=== PATIENT | female | born 1955 | race Two or more races ===

== ENCOUNTER 2017-08-08 08:49 | Inpatient (IN) | payer MEDICARE, OTHER ==
[~2017-08-08] VITALS: Ht 152.4 cm; Wt 94.8 kg
[2017-08-08 08:50] VITALS: BP 137/59
[2017-08-08] MEDS ORDERED: Sodium Chloride 500ML 500 ML IV ONE (08:56)
--- NOTE | 2017-08-08 09:17 | Emergency Room Report ---
History of Present Illness General Chief Complaint: Syncope Source: Patient Present Illness HPI Patient had a kidney transplant left lower abdomen told years ago She has been doing well with the transplant since then This morning the patient had gone to the restroom The next thing she recalls is being on the floor having difficulty standing up feeling weak Patient called the neighbors who contacted paramedics Upon arrival the patient is awake and alert complains of left hip pain Does not recall any symptoms prior to the syncopal episode At this time denies any head pain or neck pain denies any chest pain or short of breath Denies any recent fevers Allergies: Coded Allergies: No Known Allergies (Unverified , 08/08/17) Patient History Past Medical History: see triage record Pertinent Family History: none Now: No Reviewed Nursing Documentation: PMH: Agreed, PSxH: Agreed Nursing Documentation-PMH Hx Hypertension: Yes Review of Systems All Other Systems: negative except mentioned in HPI Physical Exam Vital Signs Date Time Temp Pulse Resp B/P (MAP) Pulse Ox O2 Delivery O2 Flow Rate FiO2 08/08/17 08:40 99.0 77 14 193/92 97 Room Air Sp02 EP Interpretation: reviewed, normal General Appearance: well appearing, no apparent distress Head: normocephalic, atraumatic Eyes: bilateral eye PERRL, bilateral eye EOMI ENT: hearing grossly normal, normal pharynx, TMs + canals normal, uvula midline Neck: full range of motion, supple, no meningismus, no bony tend Respiratory: lungs clear, normal breath sounds, no rhonchi, no respiratory distress, no retraction, no accessory muscle use Cardiovascular #1: normal peripheral pulses, regular rate, rhythm, no edema, no gallop, no JVD, no murmur Gastrointestinal: normal bowel sounds, non tender, soft, no mass, no organomegaly, non-distended, no guarding, no hernia, no pulsatile mass, no rebound Genitourinary: no CVA tenderness Musculoskeletal: other - Tender in the left medial upper femoral region Neurologic: oriented x3, responsive, etl lead III-XII nml as tested, motor strength/ tone normal, sensory intact Psychiatric: mood/affect normal Skin: normal color, no rash, warm/dry, palpation normal, other - AV shunt right upper arm, nonfunctional Lymphatic: normal inspection, no adenopathy Medical Decision Making Diagnostic Impression: Primary Impression: Syncope ER Course Patient is a fairly complex patient with multiple differential to consideration including but not limited to cardiac cardiopulmonary and vascular emergencies Patient's blood work remains appropriate Patient remains neurologically intact and CT was not obtained Patient admitted for further care Labs Test 08/08/17 09:10 08/08/17 09:58 White Blood Count 4.5 K/UL (4.8-10.8) Red Blood Count 3.61 M/UL (4.20-5.40) Hemoglobin 11.7 G/DL (12.0-16.0) Hematocrit 34.9 % (37.0-47.0) Mean Corpuscular Volume 96 FL (80-99) Mean Corpuscular Hemoglobin 32.4 PG (27.0-31.0) Mean Corpuscular Hemoglobin Concent 33.6 G/DL (32.0-36.0) Red Cell Distribution Width 12.5 % (11.6-14.8) Platelet Count 171 K/UL (150-450) Mean Platelet Volume 7.4 FL (6.5-10.1) Neutrophils (%) (Auto) 45.1 % (45.0-75.0) Lymphocytes (%) (Auto) 38.4 % (20.0-45.0) Monocytes (%) (Auto) 8.4 % (1.0-10.0) Eosinophils (%) (Auto) 6.4 % (0.0-3.0) Basophils (%) (Auto) 1.7 % (0.0-2.0) Sodium Level 142 MMOL/L (136-145) Potassium Level 3.9 MMOL/L (3.5-5.1) Chloride Level 106 MMOL/L (98-107) Carbon Dioxide Level 32 MMOL/L (21-32) Anion Gap 5 mmol/L (5-15) Blood Urea Nitrogen 17 mg/dL (7-18) Creatinine 0.7 MG/DL (0.55-1.30) Estimat Glomerular Filtration Rate > 60 mL/min (>60) Glucose Level 97 MG/DL (74-106) Calcium Level 9.3 MG/DL (8.5-10.1) Total Bilirubin 0.3 MG/DL (0.2-1.0) Aspartate Amino Transf (AST/SGOT) 23 U/L (15-37) Alanine Aminotransferase (ALT/SGPT) 21 U/L (12-78) Alkaline Phosphatase 39 U/L (46-116) Total Creatine Kinase 165 U/L (26-308) Creatine Kinase MB 2.2 NG/ML (0.0-3.6) Creatine Kinase MB Relative Index 1.3 Troponin I 0.003 ng/mL (0.000-0.056) Total Protein 7.3 G/DL (6.4-8.2) Albumin 3.5 G/DL (3.4-5.0) Globulin 3.8 g/dL Albumin/Globulin Ratio 0.9 (1.0-2.7) Lipase 102 U/L (73-393) Urine Color Pale yellow Urine Appearance Clear Urine pH 6 (4.5-8.0) Urine Specific [place] 1.015 (1.005-1.035) Urine Protein 1+ (NEGATIVE) Urine Glucose (UA) Negative (NEGATIVE) Urine Ketones Negative (NEGATIVE) Urine Occult Blood 1+ (NEGATIVE) Urine Nitrite Negative (NEGATIVE) Urine Bilirubin Negative (NEGATIVE) Urine Urobilinogen Normal MG/DL (0.0-1.0) Urine Leukocyte Esterase Negative (NEGATIVE) Urine RBC 2-4 /HPF (0 - 2) Urine WBC 2-4 /HPF (0 - 2) Urine Squamous Epithelial Cells Occasional /LPF Urine Bacteria Occasional /HPF (NONE) EKG Diagnostic Results Rate: normal Rhythm: NSR ST Segments: other - Nonspecific ST, T wave changes Rhythm Strip Diag. Results EP Interpretation: yes Rate: 68 Rhythm: NSR, no PVC's, no ectopy Chest X-Ray Diagnostic Results Chest X-Ray Diagnostic Results : Chest X-Ray Ordered: Yes # of Views/Limited/Complete: 1 View Indication: Chest Pain EP Interpretation: Yes Interpretation: no consolidation, no effusion, no pneumothorax, other - cardiomegaly Impression: Other - cardiomegaly Electronically Signed by: Teresa Bowman DO Other X-Ray Diagnostic Results Other X-Ray Diagnostic Results #1: X-Ray ordered: left hip # of Views/Limited Vs Complete: 3 View Indication: Pain EP Interpretation: Yes Interpretation: no dislocation, no soft tissue swelling, no fractures, other - nonspecific clips Impression: No acute disease Electronically Signed by: Teresa Bowman DO Other X-Ray Diagnostic Results #2: X-Ray ordered: left femur # of Views/Limited Vs Complete: 2 View Indication: Pain EP Interpretation: Yes Interpretation: no dislocation, no soft tissue swelling, no fractures Impression: No acute disease Electronically Signed by: Teresa Bowman DO Last Vital Signs Date Time Temp Pulse Resp B/P (MAP) Pulse Ox O2 Delivery O2 Flow Rate FiO2 08/08/17 08:40 99.0 77 14 193/92 97 Room Air Status: improved Disposition: PLACE IN OBSERVATION Condition: Serious TERESA BOWMAN D.O. Aug 08, 2017 09:17
[2017-08-08] MEDS ORDERED: NS 500ML ONE (09:35)
[2017-08-08] MEDS ORDERED: CYCLOSPORINE25 MG PO (09:45)
[2017-08-08] MEDS ORDERED: ASPIRIN-LOW81 MG ORAL (09:49)
[2017-08-08] MEDS ORDERED: DOK250 M1 PO (09:49)
[2017-08-08] MEDS ORDERED: LOSARTAN POTASS50 MG ORAL ×2 (09:49)
[2017-08-08] MEDS ORDERED: FISH OIL CAP1000 MG ORAL (09:49)
[2017-08-08] MEDS ORDERED: MYCOPHENOLATE250 MG PO (09:52)
[2017-08-08] MEDS ORDERED: PREDNISONE2.5 MG ORAL (09:52)
[2017-08-08] MEDS ORDERED: CRESTOR10 M2 ORAL (09:52)
[2017-08-08] MEDS ORDERED: OMEPRAZOLE20 M2 ORAL (09:52)
[2017-08-08 09:54] LABS: BASOPHILS % (AUTO) 1.7 % (0.0-2.0); EOSINOPHILS % (AUTO) 6.4 % (0.0-3.0); LYMPHOCYTES % (AUTO) 38.4 % (20.0-45.0); MEAN CORPUSCULAR HEMOGLOBIN 32.4 PG (27.0-31.0); MEAN CORPUSCULAR HGB CONC 33.6 G/DL (32.0-36.0); MEAN CORPUSCULAR VOLUME 96 FL (80-99); MEAN PLATELET VOLUME 7.4 FL (6.5-10.1); MONOCYTES % (AUTO) 8.4 % (1.0-10.0); NEUTROPHILS % (AUTO) 45.1 % (45.0-75.0); PLATELET COUNT 171 K/UL (150-450); RED BLOOD COUNT 3.61 M/UL (4.20-5.40); RED CELL DISTRIBUTION WIDTH 12.5 % (11.6-14.8); WHITE BLOOD COUNT 4.5 K/UL (4.8-10.8)
[2017-08-08 10:04] VITALS: BP 151/61
[2017-08-08 10:06] LABS: ANION GAP 5 mmol/L (5-15); CALCIUM 9.3 MG/DL (8.5-10.1); CARBON DIOXIDE 32 MMOL/L (21-32); CHLORIDE 106 MMOL/L (98-107); CREATININE 0.7 MG/DL (0.55-1.30); GLOMERULAR FILTRATION RATE > 60 mL/min (>60); POTASSIUM 3.9 MMOL/L (3.5-5.1); SODIUM 142 MMOL/L (136-145)
[2017-08-08 10:10] LABS: APPEARANCE,URINE CLEAR; KETONES,URINE NEGATIVE (NEGATIVE); LEUKOCYTE ESTERASE ,URINE NEGATIVE (NEGATIVE); NITRITE,URINE NEGATIVE (NEGATIVE); PH,URINE 6 (4.5-8.0); PROTEIN,URINE 1+ (NEGATIVE); UROBILINOGEN,URINE NORMAL MG/DL (0.0-1.0)
[2017-08-08 10:16] LABS: ALANINE AMINOTRANSFERASE 21 U/L (12-78); ALBUMIN/GLOBULIN RATIO 0.9 (1.0-2.7); ASPARTATE AMINO TRANSFERASE 23 U/L (15-37); CKMB 2.2 NG/ML (0.0-3.6); LIPASE 102 U/L (73-393); TOTAL PROTEIN 7.3 G/DL (6.4-8.2)
--- NOTE | 2017-08-08 10:26 | Diagnostic Imaging Report ---
Indication: Left femur pain Technique: XRAY FEMUR 2 VIEWS LEFT Comparison: None Findings: There is no acute fracture of the mid and distal left femur. Soft tissues are grossly unremarkable. Impression: No acute fracture of the mid and distal left femur.
--- NOTE | 2017-08-08 10:28 | Diagnostic Imaging Report ---
Indication: Chest pain Technique: XRAY CHEST 1 V Comparison: None Findings: Cardiac silhouette is prominent. There is central pulmonary vascular congestion and mild interstitial prominence. There is no pneumothorax or pleural effusion. Atherosclerotic changes are seen. Impression: Cardiomegaly with central pulmonary vascular congestion. Mild interstitial edema versus infiltrates. Clinical correlation/followup recommended.
--- NOTE | 2017-08-08 10:28 | Diagnostic Imaging Report ---
Indication: Left hip pain Technique: XRAY HIP 2V LEFT Comparison: None Findings: There is no radiographically evident acute fracture or dislocation. The left hip joint space is within normal limits. Soft tissues are grossly unremarkable. Clips are noted in the pelvis. Impression: No radiographically evident acute osseous abnormality. Clinical correlation recommended.
[2017-08-08 10:31] LABS: SQUAMOUS EPITHELIAL CELL,UR OCCASIONAL /LPF (NONE/OCC)
[2017-08-08 10:32] LABS: BACTERIA,URINE OCCASIONAL /HPF
[2017-08-08] MEDS ORDERED: VITAMIN B125000 MCG PO (11:28)
[2017-08-08 11:45] VITALS: BP 154/65
[2017-08-08] MEDS ORDERED: Docusate 250mg cap ORAL SCH (13:00)
[2017-08-08 16:00] VITALS: BP 130/63
[2017-08-08] MEDS: Docusate 250mg cap ORAL SCH (17:09)
[2017-08-08] MEDS ORDERED: cycloSPORINE 25mg cap ORAL SCH (18:00)
[2017-08-08] MEDS ORDERED: Mycophenolate 250mg cap ORAL SCH (18:00)
--- NOTE | 2017-08-08 19:00 | Consultation ---
DATE OF CONSULTATION: 08/08/2017 NEPHROLOGY CONSULTATION CONSULTING PHYSICIAN: Mynor Espinosa M.D. REFERRING PHYSICIAN: Leonardo Kamara M.D. REASON FOR CONSULTATION: Renal transplant status. HISTORY OF PRESENT ILLNESS: The patient had end-stage renal disease apparently due to "small kidneys" and was on dialysis for five years and received a kidney transplant 12 years ago at [facility]. She has generally been doing well. She had an episode of syncope that prompted this admission. Apparently, she fell on the floor and felt weak and apparently had a syncopal episode. There was pain in the left inner thigh. It is not clear if this is due to a fall or if it developed before the episode of syncope. The patient has a prior history of hypertension. PAST SURGICAL HISTORY: Right upper arm AV fistula, section, and renal transplant. MEDICATIONS: Include aspirin, vitamin B12, cyclosporine, DSS, fish oil, losartan, mycophenolate, omeprazole, prednisone, and lovastatin. This is taken from the computer. She could not adequately give me her own list of medications. ALLERGIES: None known. HABITS: She is a nondrinker and nonsmoker. No use of illicit drugs. SYSTEM REVIEW: HEAD, EYES, EARS, NOSE, AND THROAT: Vision and hearing are good. ENDOCRINE: No diabetes or thyroid disease. PULMONARY: No asthma, TB, or chronic cough. CARDIAC: No angina, CA, or palpitations. GASTROINTESTINAL: No GI bleeding or ulcers. GENITOURINARY: No dysuria or hematuria. NEUROLOGIC: No prior episodes of CVA or syncope. PHYSICAL EXAMINATION: GENERAL: The patient is alert, moderately obese lady, in no acute distress. VITAL SIGNS: Temperature 97.7 degrees, pulse 69, respirations 16, and blood pressure 154/65. HEENT: Sclerae nonicteric. Ocular motions intact in all directions. Oral mucosa moist. NECK: No adenopathy or thyroid enlargement. LUNGS: Clear. HEART: Regular rhythm. I hear no murmur. ABDOMEN: Obese and soft. No organomegaly or masses. The kidney transplant is in the left iliac fossa and nontender. EXTREMITIES: No edema, cyanosis, or clubbing. There is a large AV fistula that is working in the right upper arm. She has very mild tenderness in the left thigh. No evidence of cord or definite DVT. NEUROLOGIC: She is alert and oriented. Cranial nerves are intact. No focal findings. LABORATORY AND DIAGNOSTIC DATA: Pertinent labs show white count of 4.5 and hemoglobin is 11.7. Sodium 132, potassium 3.9, BUN 17, creatinine 0.7, and glucose 97. Troponin 0.003. Urinalysis shows 2 to 4 white cells per high-power field and 1+ protein. IMPRESSION: 1. Kidney transplant status with stable function. 2. Syncope, etiology unclear. 3. History of hypertension. 4. Obesity. 5. Left thigh pain, which appears to be soft tissue injury, rule out deep venous thrombosis. PLAN: Continue her transplant medicines. We will do a DVT study. Thank you so much for having me to see the patient in consultation. Mynor Espinosa M.D. DR: Etienne JOB#: [id number] CC:
[2017-08-08 20:03] VITALS: BP 147/71
[2017-08-08] MEDS: Mycophenolate 250mg cap ORAL SCH (20:55)
[2017-08-08] MEDS: cycloSPORINE 25mg cap ORAL SCH (20:56)
[2017-08-08] MEDS: Heparin 5000 units/ml inj SUBQ SCH (21:14)
[2017-08-08] MEDS: Acetaminophen 500mg (ES) tab ORAL PRN (21:19)
[2017-08-09 00:04] VITALS: BP 153/68
[2017-08-09 04:22] VITALS: BP 150/74
[2017-08-09 06:29] LABS: BASOPHILS % (AUTO) 1.4 % (0.0-2.0); EOSINOPHILS % (AUTO) 7.1 % (0.0-3.0); LYMPHOCYTES % (AUTO) 37.9 % (20.0-45.0); MEAN CORPUSCULAR HEMOGLOBIN 31.2 PG (27.0-31.0); MEAN CORPUSCULAR HGB CONC 32.5 G/DL (32.0-36.0); MEAN CORPUSCULAR VOLUME 96 FL (80-99); MEAN PLATELET VOLUME 7.8 FL (6.5-10.1); MONOCYTES % (AUTO) 6.9 % (1.0-10.0); NEUTROPHILS % (AUTO) 46.6 % (45.0-75.0); PLATELET COUNT 182 K/UL (150-450); RED BLOOD COUNT 3.58 M/UL (4.20-5.40); RED CELL DISTRIBUTION WIDTH 12.4 % (11.6-14.8); WHITE BLOOD COUNT 4.7 K/UL (4.8-10.8)
[2017-08-09 06:44] LABS: ANION GAP 6 mmol/L (5-15); CALCIUM 9.2 MG/DL (8.5-10.1); CARBON DIOXIDE 30 MMOL/L (21-32); CHLORIDE 104 MMOL/L (98-107); CREATININE 0.7 MG/DL (0.55-1.30); GLOMERULAR FILTRATION RATE > 60 mL/min (>60); POTASSIUM 3.8 MMOL/L (3.5-5.1); SODIUM 140 MMOL/L (136-145)
[2017-08-09 08:36] VITALS: BP 177/79
[2017-08-09] MEDS: Aspirin EC 81mg tab ORAL SCH (08:52)
[2017-08-09] MEDS: cycloSPORINE 25mg cap ORAL SCH ×2 (08:52→21:33)
[2017-08-09] MEDS: Mycophenolate 250mg cap ORAL SCH ×2 (08:52→21:32)
[2017-08-09] MEDS: Docusate 250mg cap ORAL SCH ×2 (08:52→17:23)
[2017-08-09] MEDS: Heparin 5000 units/ml inj SUBQ SCH ×2 (08:53→21:36)
[2017-08-09] MEDS: Losartan 50mg tab ORAL SCH (08:53)
--- NOTE | 2017-08-09 11:32 | Nephrology Progress Note ---
Assessment/Plan Problem List: (1) Hypertension, benign (2) Renal transplant recipient (3) Syncope Plan lab stable, bp mild high observe Subjective Constitutional: Reports: no symptoms HEENT: Reports: no symptoms Genitourinary: Reports: no symptoms Neurologic/Psychiatric: Reports: no symptoms Objective Objective Last 24 Hour Vital Signs Date Time Temp Pulse Resp B/P (MAP) Pulse Ox O2 Delivery O2 Flow Rate FiO2 08/09/17 08:53 177/79 08/09/17 08:36 98.1 79 20 177/79 94 Room Air 08/09/17 08:00 79 08/09/17 04:22 97.2 80 19 150/74 96 Room Air 08/09/17 03:50 70 08/09/17 00:04 97.2 82 20 153/68 98 Room Air 08/08/17 23:52 71 08/08/17 20:03 97.2 76 20 147/71 96 Room Air 08/08/17 19:54 73 08/08/17 16:00 97.2 71 20 130/63 97 Room Air 08/08/17 16:00 73 08/08/17 12:00 66 08/08/17 11:45 97.7 69 16 154/65 91 Room Air Intake and Output 08/09/17 08/10/17 19:00 07:00 Intake Total 360 ml Balance 360 ml Intake Oral 360 ml # Voids 1 Laboratory Tests 08/09/17 05:11: White Blood Count 4.7L, Red Blood Count 3.58L, Hemoglobin 11.2L, Hematocrit 34.3L, Mean Corpuscular Volume 96, Mean Corpuscular Hemoglobin 31.2H, Mean Corpuscular Hemoglobin Concent 32.5, Red Cell Distribution Width 12.4, Platelet Count 182, Mean Platelet Volume 7.8, Neutrophils (%) (Auto) 46.6, Lymphocytes (% ) (Auto) 37.9, Monocytes (%) (Auto) 6.9, Eosinophils (%) (Auto) 7.1H, Basophils (%) (Auto) 1.4, Sodium Level 140, Potassium Level 3.8, Chloride Level 104, Carbon Dioxide Level 30, Anion Gap 6, Blood Urea Nitrogen 16, Creatinine 0.7, Estimat Glomerular Filtration Rate > 60, Glucose Level 102, Calcium Level 9.2, Troponin I 0.003 Height (Feet): 5 Height (Inches): 4.00 Weight (Pounds): 209 General Appearance: no apparent distress, obese EENT: normal ENT inspection Neck: normal alignment Cardiovascular: normal rate Respiratory/Chest: lungs clear Abdomen: non tender Extremities: other - no edema 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
[2017-08-09 12:36] VITALS: BP 148/79
--- NOTE | 2017-08-09 15:09 | Cardiology Report ---
APPROVED REPORT EXAM: Two-dimensional and M-mode echocardiogram with Doppler and color Doppler. INDICATION Syncope M-Mode DIMENSIONS IVSd1.3 (0.7-1.1cm)Left Atrium (MM)4.6 (1.6-4.0cm) LVDd4.6 (3.5-5.6cm)Aortic Root2.5 (2.0-3.7cm) PWd0.9 (0.7-1.1cm)Aortic Cusp Exc.1.8 (1.5-2.0cm) LVDs2.0 (2.5-4.0cm) PWs1.7 cm Technically difficult study due to poor parasternal acoustical windows. Study quality precludes accurate assessment of regional wall motion. Normal left ventricular chamber size, systolic function and wall motion. Left ventricular ejection fraction estimated to be 60 %. Mild left ventricular hypertrophy. Anterior Echo-free space, may be due to pericardial fat or effusion. Mild left atrial enlargement. Mild right ventricular enlargement. Right atrial chamber size is within normal limits. Focal aortic valve sclerosis with adequate cusp excursion. Thickened mitral valve leaflets with normal excursion. Mild mitral annulus and aortic root calcification. Normal pulmonic valve structure. Normal tricuspid valve structure. IVC measures at 1.7 cm and with physiologic collapse. A color flow and spectral Doppler study was performed and revealed: Mild aortic regurgitation. Mild mitral regurgitation. Mitral inflow indicate normal left ventricular diastolic function. Trace tricuspid regurgitation. Tricuspid systolic velocities suggests peak right ventricular systolic pressure of 36 mmHg, consistent with mild pulmonary hypertension. No pulmonic regurgitation present.
--- NOTE | 2017-08-09 15:30 | Cardiology Report ---
APPROVED REPORT EKG Measurement Heart [id number] ID [id number] Normal sinus rhythm Low voltage QRS Borderline ECG
[2017-08-09 16:09] VITALS: BP 136/66
--- NOTE | 2017-08-09 20:45 | History and Physical Report ---
DATE OF ADMISSION: 08/08/2017 CHIEF COMPLAINT: Syncope. HISTORY OF PRESENT ILLNESS: The patient is a pleasant 62-year-old female. She has a history of chronic kidney disease status post kidney transplant approximately 12 years ago. She has a history of hypertensive heart disease, was sent home, going to the restroom. When she got up, she had severe pain in the left groin and had a syncopal episode. The patient denies any shortness of breath or heart palpitations. She has been eating and drinking well. Denies any diarrhea. On evaluation in emergency room, chest x-ray and x-rays of the hip were unremarkable. In light of the syncopal episode, she was admitted for further evaluation and care. PAST MEDICAL HISTORY: As above. PAST SURGICAL HISTORY: Cholecystectomy, kidney transplant, and . CURRENT MEDICATIONS: Reconciled and reviewed. ALLERGIES: None. SOCIAL HISTORY: Negative for tobacco, ethanol, or drugs. FAMILY HISTORY: Significant for diabetes. REVIEW OF SYSTEMS: GENERAL: No fever or chills. HEENT: No headaches or visual changes. CARDIOPULMONARY: No chest pain or shortness of breath. GASTROINTESTINAL: No nausea or vomiting. GENITOURINARY: No urgency or frequency. MUSCULOSKELETAL: No joint pain or swelling. NEUROLOGIC: No evidence of seizures. PHYSICAL EXAMINATION: VITAL SIGNS: Temperature 97.2, pulse 80, respirations 19, blood pressure 150/74. GENERAL: The patient is a well-developed female, in no apparent distress. She is awake and alert. NECK: Supple. No carotid bruits. HEART: Regular rate and rhythm. LUNGS: Clear. ABDOMEN: Soft, nontender, and nondistended. EXTREMITIES: Without clubbing, cyanosis, or edema. LABORATORY AND DIAGNOSTIC DATA: UA was clear. White count was 4, hemoglobin 11, hematocrit 34, and platelet count of 171. Sodium is 140, potassium 3.9, and creatinine was 0.7. Troponin was negative x2. UA was clear. Chest x-ray also was clear. ASSESSMENT: This is a pleasant female admitted with complaints of syncopal suspect vasovagal syncope. She has a history of kidney transplant and hypertension. PLAN: 1. Check an echo and a carotid duplex. 2. PT/OT evaluations. 3. Monitor blood pressure. 4. Cardiology consultation and Renal consultation has been obtained. 5. We will monitor on telemetry for 24 hours. If the workup was negative, the patient probably can be discharged home. Leonardo Kamara M.D. DR: Shukri JOB#: [id number] CC:
[2017-08-09 20:50] VITALS: BP 146/68
--- NOTE | 2017-08-09 21:00 | Consultation ---
DATE OF CONSULTATION: 08/08/2017 CARDIOLOGY CONSULTATION REQUESTING PHYSICIAN: Leonardo Kamara M.D. REASON FOR CONSULTATION: Syncope. HISTORY OF PRESENT ILLNESS: This is a pleasant 62-year-old female who is status post renal transplant this morning. She went to the restroom and the next thing she recalled is being on the floor having difficulty standing up and feeling very weak. She denies chest pain or dizziness prior to the event and denied any palpitations or shortness of breath. The patient contacted neighbors. Paramedics were contacted. The patient was brought to the emergency room with stable vital signs. The patient does not recall prior such episode of loss of consciousness and only complained of left hip pain in the emergency room. She has not been feeling sick or ill during the days prior to this event. She has been compliant with medications. PAST MEDICAL HISTORY: Hypertension, prior history of dialysis, renal transplant 12 years ago, and AV fistula right upper extremity. MEDICATIONS: Prior to admission, reviewed and reconciled. ALLERGIES: None known. SOCIAL HISTORY: Negative for smoking, alcohol, or substance abuse. FAMILY HISTORY: Noncontributory. REVIEW OF SYSTEMS: No loss of vision or hearing. No history of diabetes or thyroid disorder. No history of seizure or stroke. No noted melena or bright red blood per rectum. No diarrhea or abdominal pain. No history of myocardial infarction. Her blood pressure control is adequate apparently on her current medications, although she cannot be sure. There is no history of asthma or blood clots or abnormal blood clotting. PHYSICAL EXAMINATION: GENERAL: Awake, alert, moderately obese. No distress. VITAL SIGNS: In the emergency room, blood pressure 193/92, pulse 77, respiratory rate 14, temperature 99 degrees, subsequently, blood pressure 151/61, pulse 69, and respiratory rate 14. HEENT: Normocephalic and atraumatic. Conjunctivae are pink. Oropharynx clear. NECK: Supple. Jugular venous pressure normal. LUNGS: Clear to auscultation. CARDIAC: Regular rhythm and rate. Distant S1 and S2 with no murmur rub or gallop. ABDOMEN: Soft and nontender. Kidney transplant in the left iliac region and is nontender. EXTREMITIES: With no edema. There is a AV fistula on the right upper extremity and there is mild tenderness over the left thigh region. LABORATORY AND DIAGNOSTIC DATA: Laboratories are reviewed. Troponin negative. EKG revealed sinus rhythm with low voltage. IMPRESSION: 1. Syncopal episode, etiology remains unclear, possibly vasovagally mediated. 2. Labile hypertension/possible hypertensive urgency. 3. Renal transplant. 4. Left hip pain following trauma. PLAN: 1. Cardiac monitoring. 2. Titration of antihypertensive. 3. Avoid orthostatic potential. 4. Echocardiogram. 5. Carotid duplex study. 6. Review x-rays of left hip. Qamar Mcneill M.D. DR: AMBERLY JOB#: [id number] CC:
[2017-08-09] MEDS: Acetaminophen 500mg (ES) tab ORAL PRN (21:53)
--- NOTE | 2017-08-09 23:15 | Progress Note ---
DATE: 08/09/2017 CARDIOLOGY PROGRESS NOTE SUBJECTIVE: The patient is reevaluated today and her presenting symptoms were discussed again this time with the help of a job spotter although my [place] is fair. It is clarified at this time that the patient had severe left thigh pain prior to passing out. The patient has not had any recurring symptoms since here. OBJECTIVE: VITAL SIGNS: Blood pressure 148/79, heart rate 75, and respiratory rate 20. Blood pressure earlier was 177/79. Monitored rhythm sinus. LUNGS: Good breath sounds. HEART: Regular rhythm and rate. Normal S1, S2. ABDOMEN: Soft. EXTREMITIES: No edema. Some tenderness at the left thigh. IMPRESSION: 1. Vasovagally mediated syncopal episode due to severe left thigh pain, rule out occult fracture, rule out deep venous thrombosis. 2. Renal transplant. 3. Hypertensive heart disease with lability of blood pressure, but overall improving and controlled. PLAN: 1. Review carotid duplex. 2. We would not tighten blood pressure control at this time, but continue observation. 3. Check orthostatics. 4. Continue cardiac monitoring. 5. No further cardiovascular workup presently planned. Qamar Mcneill M.D. DR: Byron JOB#: [id number] CC:
[2017-08-10] VITALS: BP 152/75
[2017-08-10 04:00] VITALS: BP 152/66
--- NOTE | 2017-08-10 07:58 | General Progress Note ---
Assessment/Plan Problem List: (1) Syncope ICD Codes: R55 - Syncope and collapse SNOMED: 159025791 (2) Hypertension, benign ICD Codes: I10 - Essential (primary) hypertension SNOMED: 77110076 (3) Renal transplant recipient ICD Codes: Z94.0 - Kidney transplant status SNOMED: 401283328 Status: stable, progressing Assessment/Plan check ortho statics mobilize pt/ot await duplex and carotids if negative and ambulating well pt can dc home Subjective ROS Limited/Unobtainable: No Constitutional: Reports: malaise, weakness HEENT: Reports: no symptoms Cardiovascular: Reports: no symptoms Respiratory: Reports: no symptoms Gastrointestinal/Abdominal: Reports: no symptoms Genitourinary: Reports: no symptoms Neurologic/Psychiatric: Reports: no symptoms Endocrine: Reports: no symptoms Hematologic/Lymphatic: Reports: no symptoms Allergies: Coded Allergies: No Known Allergies (Unverified , 08/08/17) All Systems: reviewed and negative except above Subjective no events. denies dizziness. echo ok. Objective Last 24 Hour Vital Signs Date Time Temp Pulse Resp B/P (MAP) Pulse Ox O2 Delivery O2 Flow Rate FiO2 08/10/17 04:00 98.1 66 20 152/66 92 Room Air 08/10/17 04:00 71 08/10/17 00:00 66 08/10/17 00:00 97.7 67 18 152/75 93 Room Air 08/09/17 20:50 98.2 71 18 146/68 92 Room Air 08/09/17 20:00 72 08/09/17 16:09 98.0 81 20 136/66 94 Room Air 08/09/17 16:00 73 08/09/17 12:36 97.9 75 20 148/79 95 Room Air 08/09/17 12:00 68 08/09/17 08:53 177/79 08/09/17 08:36 98.1 79 20 177/79 94 Room Air 08/09/17 08:00 79 Height (Feet): 5 Height (Inches): 4.00 Weight (Pounds): 209 General Appearance: WD/WN, alert Neck: supple Cardiovascular: normal peripheral pulses, normal rate Respiratory/Chest: chest wall non-tender, lungs clear, normal breath sounds, no respiratory distress Abdomen: normal bowel sounds, non tender, soft, no organomegaly Edema: no edema noted Arm (L), no edema noted Arm (R), no edema noted Leg (L), no edema noted Leg (R), no edema noted Pedal (L), no edema noted Pedal (R), no edema noted Generalized JOCE STEVEN Aug 10, 2017 07:58
[2017-08-10 08:17] VITALS: BP 158/76
[2017-08-10] MEDS: cycloSPORINE 25mg cap ORAL SCH (08:19)
[2017-08-10] MEDS: Docusate 250mg cap ORAL SCH (08:20)
[2017-08-10] MEDS: Losartan 50mg tab ORAL SCH (08:20)
[2017-08-10] MEDS: Aspirin EC 81mg tab ORAL SCH (08:21)
[2017-08-10] MEDS: Heparin 5000 units/ml inj SUBQ SCH (08:23)
[2017-08-10] MEDS: Mycophenolate 250mg cap ORAL SCH (08:25)
--- NOTE | 2017-08-10 10:11 | Diagnostic Imaging Report ---
APPROVED REPORT CPT Code: 33628 Present Symptoms Lower Extremity Pain: Bilateral BILATERAL: Imaging reveals a patent deep venous system bilaterally. There is no evidence of thrombus within the femoral, popliteal or tibial segments. The greater saphenous veins are also within normal limits. Doppler indicates normal spontaneous flow within these segments.
--- NOTE | 2017-08-10 10:12 | Diagnostic Imaging Report ---
APPROVED REPORT CPT Code: 64012 Vascular Symptoms Dizziness and Vertigo CAROTID (BILATERAL) - Imaging reveals no significant plaque within the right and left extracranial carotid arteries. The Doppler spectral flow analysis is within normal limits throughout the extracranial carotid arteries bilaterally. VERTEBRAL- The vertebral arteries are within normal limits.
[2017-08-10 11:45] VITALS: BP 148/64
--- NOTE | 2017-08-11 07:15 | Progress Note ---
DATE: 08/10/2017 CARDIOLOGY PROGRESS NOTE SUBJECTIVE: Leg pain has diminished. No dizziness noted. The patient is ambulatory. OBJECTIVE: VITAL SIGNS: No signs of orthostasis. Blood pressure 158/72, pulse 73, respirations 18, afebrile, and oxygen saturation on room air 92%. NECK: Supple. LUNGS: Clear. CARDIAC: Regular. Normal S1, S2. ABDOMEN: Soft. EXTREMITIES: No edema. DIAGNOSTIC DATA: Carotid duplex study with no flow-limiting process. Venous duplex, negative for DVT. IMPRESSION: 1. Vasovagally-mediated syncope due to acute pain in the left limb. 2. Left limb pain, likely due to musculoskeletal and neuropathic component. 3. Hypertension, controlled. 4. Renal transplant with stable renal function. PLAN: 1. Stable for outpatient followup. 2. Continue current cardiovascular regimen. 3. Consider physical therapy for left leg and lower back. 4. Pain control. 5. The patient counseled as to etiology for her syncopal episode in association with acute pain with reflex vasovagally-mediated response. Qamar Mcneill M.D. DR: GENO JOB#: [id number] CC:
--- NOTE | 2017-08-11 15:13 | Discharge Summary ---
Discharge Summary Hospital Course Date of Admission Aug 08, 2017 at 09:34 Date of Discharge Aug 10, 2017 at 13:57 Admitting Diagnosis syncope HPI Germaine Felix is a 62 year old female who was admitted on Aug 08, 2017 at 09: 34 for Syncope Hospital Course dc summary #[id number] Discharge Medications Continued Medications: Aspirin (Aspirin EC) 81 Mg Tablet.dr 81 MG ORAL DAILY, TAB Cyclosporine (Cyclosporine) 25 Mg Capsule 50 MG PO BID, CAP Docusate Sodium (Dok) 250 Mg Capsule 250 MG PO BID, CAP Fish Oil (Fish Oil 1,000 mg Capsule) 1 Each Capsule 1000 MG ORAL DAILY, CAP Losartan Potassium* (Losartan Potassium*) 50 Mg Tablet 50 MG ORAL DAILY, TAB Omeprazole (Omeprazole) 20 Mg Capsule.dr 20 MG ORAL DAILY, CAP Rosuvastatin Calcium* (Crestor*) 10 Mg Tablet 10 MG ORAL DAILY, TAB Discharge Discharge Disposition Patient was discharged to Home (01) Discharge Diagnoses: Discharge Instructions Discharge Instructions Special Instructions I have been assigned to complete a D/C Summary on this account. I was not involved in the patient management Maura Cabrera NP ([place]te[place]) Aug 11, 2017 15:13
--- NOTE | 2017-08-11 21:15 | Discharge Summary 2 SIG ---
DATE OF ADMISSION: 08/08/2017 DATE OF DISCHARGE: 08/10/2017 REASON FOR ADMISSION: 62-year-old female with history of chronic kidney disease, status post kidney transplant , and hypertension, presented to the emergency department after syncopal episode. The patient denied shortness of breath, chest pain, palpitations. She had been eating and drinking well. She denied diarrhea. The patient stated that she was in the restroom, but when she was getting up, she had severe pain in the left groin and subsequently had a syncopal episode. Workup in the emergency department done revealed stable electrolytes and renal parameters. Troponin was negative. X-ray of the left hip and left femur revealed no evidence of acute injury. EKG revealed normal sinus rhythm. Chest x-ray was unremarkable. Urinalysis clear. No leukocytosis. Mild anemia. The patient was admitted for workup for possibly vasovagally mediated syncopal episode, kidney transplant status, and hypertension along with the left thigh pain. HOSPITAL COURSE: The patient was admitted. Cardiology and Nephrology consults were requested. The patient was on telemetry floor. Serial troponin levels were negative. No ischemic changes on ECG. The patient was ruled out for acute myocardial infarction. No evidence of arrhythmias on the monitor. Echocardiogram revealed preserved ejection fraction of 60% and right ventricular systolic pressure of 36 consistent with mild pulmonary hypertension as well as evidence of mild left ventricular hypertrophy. Venous duplex bilateral lower extremities was negative. Carotid duplex was essentially unremarkable. Insurance Claim Approver seen and evaluated the patient. Orthostatic vital signs revealed no evidence of orthostatic changes. The patient was working on physical and occupational therapists. Fall precautions were maintained. Pain management was provided. Insurance Claim Approver concluded that the patient had a vasovagally-mediated syncopal episode secondary to acute pain in the left hip. The patient was educated on the nature of her syncopal episode by applications support engineer. Blood pressure was managed with current medication regimen. Insurance Claim Approver recommended to avoid tight control at this time. [employer] Ground Crew Supervisor seen and evaluated the patient. Home medication for transplant rejections were continued. DVT prophylaxis was provided. Bowel regimen was instituted. The patient was stable for discharge. FINAL DIAGNOSES: 1. Vasovagally mediated syncopal episode, secondary to acute left limb pain. 2. Kidney transplant status. 3. Hypertensive heart disease with labile hypertension. 4. Left limb pain, likely secondary to musculoskeletal and/or neuropathic component. DISCHARGE MEDICATIONS: See medication reconciliation list. DISCHARGE INSTRUCTIONS: The patient was discharged home. Follow up with primary medical doctor. Leonardo Kamara M.D. I have been assigned to dictate discharge summary on this account and I was not involved in the patient's management. Maura Cabrera (Vanchtein) NLupe DR: Michi JOB#: [id number] CC: MIRIAM
== END 2017-08-10 13:57 | disposition home or self-care (01) | DRG 555 ==
LOC: EDBD 08:49 → EMR 09:33 → 2E 09:34 → OBSVTOIN 09:34 → EDBEDREQ 09:38
DX: M79.605 Pain in left leg (principal); N18.6 End stage renal disease; I11.9 Hypertensive heart disease without heart failure; Z94.0 Kidney transplant status; Z68.41 Body mass index [BMI] 40.0-44.9, adult; R55 Syncope and collapse; E66.9 Obesity, unspecified; I16.0 Hypertensive urgency
CPT/HCPCS: 36415; 71010; 73502; 80048; 80053; 81003; 82550; 82553; 83690; 84484; 85025; 93005; 93306; 93880; 93970; 99285